=== PATIENT | male | born 1965 | race African-American/Black ===

== ENCOUNTER 2023-08-26 05:08 | Emergency (ER) | payer MEDICARE, SELFPAY ==
[2023-08-26 05:11] VITALS: BP 169/87; PULSE 66; RESP 20; TEMP 37; O2SAT 100
[2023-08-26 05:19] VITALS: BP 162/89; PULSE 63; RESP 16; TEMP 36.4; O2SAT 100
--- NOTE | 2023-08-26 05:30 | ED.GENADULT ---
HPI - General Adult General Chief complaint: Unspecified Stated complaint: constipation Time Seen by Provider: 08/26/23 05:21 History of Present Illness HPI narrative: Patient is a 58-year-old male who presents to the emergency department this morning complaining of concern for cost patient and rectal pain. Patient states that he feels as though there is a large stool ball sitting in his rectum preventing him from being able to have a full bowel movement. Patient admits that he did have a bowel movement yesterday although it was not a full one. Patient admits that he is currently taking narcotics and believes that this has precipitated his constipation. Patient admits that he has had fecal impaction in the past but states that he was able to disimpact himself but this time he could not do that. He denies any nausea or vomiting, denies any fevers or chills, and is otherwise denying any abdominal pain. There are no other modifying, alleviating, or precipitating factors present. Related Data Allergies Allergy/AdvReac Type Severity Reaction Status Date / Time No Known Allergies Allergy Unverified 08/08/19 10:36 Review of Systems Review of Systems: All systems are reviewed and are negative unless stated otherwise in the HPI. PMFSH Comments Past surgical history includes recent left wrist surgery. Exam Narrative: General: Alert, awake, afebrile, in no acute distress. HEENT: PERRL, no rhinorrhea, no post nasal drip, oropharynx clear. Neck: Trachea midline, no JVD, no lymphadenopathy. Cardiovascular: Regular rate and rhythm, no murmurs, rubs or gallops, no peripheral edema. Respiratory: Clear to auscultation bilaterally, no tachypnea, no wheezing, no rhonchi, no rubs, no respiratory distress. Abdomen: Soft, nontender, nondistended, no rebound, no guarding, no peritoneal signs. Musculoskeletal: No joint swelling or deformity, normal muscle tone. Skin: No rashes or petechia, no signs of infection. Psychiatric: Alert and oriented, normal behavior and judgment for situation. Neurological: Alert and oriented to person, place, and time. Follows all commands. No focal deficits, speech is clear and fluent. Course Vital Signs Vital signs: Vital Signs Temperature 98.6 F 08/26/23 05:11 Pulse Rate 66 08/26/23 05:11 Respiratory Rate 20 08/26/23 05:11 Blood Pressure 169/87 H 08/26/23 05:11 Pulse Oximetry 100 08/26/23 05:11 Oxygen Delivery Room Air 08/26/23 05:11 Temperature 97.6 F 08/26/23 05:19 Pulse Rate 63 08/26/23 05:19 Respiratory Rate 16 08/26/23 05:19 Blood Pressure 162/89 H 08/26/23 05:19 Pulse Oximetry 100 08/26/23 05:19 Oxygen Delivery Room Air 08/26/23 05:11 Medical Decision Making MDM Narrative Medical decision making narrative: The patient was evaluated by myself in the emergency department. History is obtained from patient who is an independent historian and physical exam was performed. External medical records were reviewed at this time. Patient was very hesitant about me performing fecal disimpaction and wanted to attempt having a bowel movement by himself. Patient was successful in having a large volume bowel movement and states that he feels significantly better. Patient does not want rectal examination or fecal disimpaction, states that he feels much better and is requesting to be discharged with stool softeners and laxatives. Differential diagnosis considerations include constipation and fecal impaction. Comorbidities impacting this visit include recent narcotic use precipitating his constipation. I have evaluated and discussed social determinants of health with the patient that could potentially impact subsequent diagnosis and treatment plans. On repeat assessment of the patient, reevaluation revealed that the patient is doing well and is in no acute distress. Patient symptoms have improved since he arrived to our emergency department and he states that he f
--- NOTE | 2023-08-26 05:38 | PC.NURSE ---
Patient attempting to use restroom now
--- NOTE | 2023-08-26 05:55 | PC.NURSE ---
Patient still on toilet and nursing staff checked on patient. Per patient he is okay.
== END 2023-08-26 06:38 | disposition home or self-care (01) ==
PROVIDERS: Emergency Provider Emergency Medicine; PCP Hospitalist
DX: K59.00 Constipation, unspecified (principal)
CPT/HCPCS: 99283